=== PATIENT | female | born 1995 | race Caucasian/White ===

== ENCOUNTER 2016-10-28 02:02 | Emergency (ER) | payer OTHER ==
[~2016-10-28] VITALS: Ht 152.4 cm; Wt 74.5 kg
[2016-10-28 02:15] VITALS: BP 93/64
== END 2016-10-28 03:16 | disposition left against medical advice (07) ==
LOC: ED 03:14
DX: Z76.1 Encounter for health supervision and care of foundling (principal); Z53.21 Procedure and treatment not carried out due to patient leaving prior to being seen by health care provider

== ENCOUNTER 2016-10-31 00:21 | Emergency (ER) | payer OTHER ==
[~2016-10-31] VITALS: Ht 152.4 cm; Wt 75.3 kg
[2016-10-31 03:01] VITALS: BP 116/74
== END 2016-10-31 03:08 | disposition home or self-care (01) ==
LOC: ED 02:58
DX: L02.411 Cutaneous abscess of right axilla (principal)
CPT/HCPCS: 99282